=== PATIENT | male | born 1965 | race Caucasian/White ===

== ENCOUNTER 2024-04-29 10:09 | Outpatient (REF) | payer OTHER, SELFPAY ==
[2024-04-29 19:25] LABS: ALT 32 U/L (16-63); AST 30 U/L (15-37); Albumin 3.4 g/dL (3.4-5.0); Alkaline Phosphatase 102 U/L (46-116); Anion Gap 3.2 mmol/L (3-11); BUN 11 mg/dL (7-18); Bilirubin, Total 0.91 mg/dL (0.2-1.0); CO2 37.8 mmol/L (21.0-32.0); CREATININE 1.1 mg/dL (0.70-1.30); Calcium 9.8 mg/dL (8.5-10.1); Calculated LDL 63 mg/dL (<100); Chloride 99 mmol/L (98-107); Cholesterol 119 mg/dL (<200); Estimated GFR 77.81 (mL/min/1.73m2); Glucose 111 mg/dL (74-106); HDL Cholesterol 42 mg/dL (40-60); Sodium 140 mmol/L (136-145); Total Protein 8.1 g/dL (6.4-8.2); Triglyceride 73 mg/dL (<150)
[2024-04-29 19:43] LABS: Potassium 2.7 mmol/L (3.5-5.1)
[2024-04-30 19:02] LABS: PSA, Screening 1.7 ng/mL (<=3.5)
== END 2024-04-29 10:10 | disposition home or self-care (01) ==
LOC: NCHCN 10:09
PROVIDERS: PCP Family Medicine; Visit Provider Nurse Practitioner Family
DX: I10 Essential (primary) hypertension (principal); N40.1 Benign prostatic hyperplasia with lower urinary tract symptoms
CPT/HCPCS: 80053; 80061; 84153

== ENCOUNTER 2024-12-02 16:02 | Outpatient (REF) | payer OTHER, SELFPAY ==
[2024-12-02 19:28] LABS: Anion Gap 6.2 mmol/L (3-11); BUN 13 mg/dL (7-18); CO2 31.8 mmol/L (21.0-32.0); Calcium 8.9 mg/dL (8.5-10.1); Chloride 102 mmol/L (98-107); Estimated GFR 77.81 (mL/min/1.73m2); Glucose 94 mg/dL (74-106); Potassium 4.0 mmol/L (3.5-5.1); Sodium 140 mmol/L (136-145)
== END 2024-12-02 16:03 | disposition home or self-care (01) ==
LOC: NCHCN 16:02
PROVIDERS: PCP Family Medicine; Visit Provider Nurse Practitioner Family
DX: E87.6 Hypokalemia (principal)
CPT/HCPCS: 80048

== ENCOUNTER 2025-03-05 14:04 | Outpatient (REF) | payer OTHER, SELFPAY ==
[2025-03-05 20:22] LABS: Abs Immature Grans 0.02 10^3/uL (0.0-0.06); HCT 44.6 % (40.0-50.0); HGB 15.6 g/dL (13.5-17.5); Immature Grans % 0.2 %; MCH 32.1 pg (27.0-33.0); MCHC 35.0 % (32.0-36.0); MCV 92 fL (80-95); MPV 10.7 fL (8.0-11.0); Platelet Count 255 10^3/uL (130-400); RBC 4.86 10^6/uL (4.36-5.78); RDW 12.3 % (11.8-14.1); RDW-SD 41.7 fL; WBC 8.90 10^3/uL (4.4-10.8)
[2025-03-05 20:40] LABS: Cholesterol 114 mg/dL (<200); HDL Cholesterol 33 mg/dL (>or=40)
[2025-03-05 20:55] LABS: Hemoglobin A1C 5.1 % (<5.7)
[2025-03-07 17:58] LABS: PSA, Screening 2.1 ng/mL (<=3.5)
== END 2025-03-05 14:05 | disposition home or self-care (01) ==
LOC: NCHCN 14:04
PROVIDERS: PCP Family Medicine; Visit Provider Nurse Practitioner Family
DX: E66.9 Obesity, unspecified (principal); C61 Malignant neoplasm of prostate; E78.5 Hyperlipidemia, unspecified; I10 Essential (primary) hypertension
CPT/HCPCS: 80061; 84153; 83036; 85025